=== PATIENT | male | born 1965 | race Caucasian/White ===

== ENCOUNTER → 2021-01-17 09:36 | Outpatient (BNVA) | payer BC, SELFPAY | PROVIDERS: Family Provider Student in an Organized Health Care Education/Training Program; Visit Provider Nurse Practitioner Family | DX: E11.628 Type 2 diabetes mellitus with other skin complications (principal); L89.894 Pressure ulcer of other site, stage 4; L03.115 Cellulitis of right lower limb | CPT/HCPCS: 87070; 87075; 87205 ==

== ENCOUNTER 2021-01-22 10:03 | Outpatient (CLI) | payer BC, SELFPAY ==
--- NOTE | 2021-01-22 12:32 | XR_ITS ---
WS: [id number] Right foot, 3 views, 01/22/2021 Clinical Data: TYPE II DM W/FOOT ULCER Comparison: Right foot, 04/27/2019. Findings: The distal right second metatarsal as been removed. There is erosion and subluxation at the base of the right third proximal phalanx with air adjacent. T here is also air in the subcutaneous tissue adjacent to the right third PIP joint. No fractures are s een. There is a small Achilles spur. XR/XR foot RT min 3V* [id number] Impression: 1. Amputation of the distal right second metatarsal. 2. Subluxation and erosion of the right third MP joint. 3. Air adjacent to the right third MP and PIP joints suspicious for infection.
[2021-01-22 13:34] LABS: Basophils # 0.1 10^3/uL (0.0-0.1); Basophils % 0.7 %; Eosinophils # 0.2 10^3/uL (0.0-0.8); Eosinophils % 2.2 %; Hemoglobin 14.4 g/dL (11.7-16.6); Lymphocytes # 1.4 10^3/uL (0.8-4.8); Lymphocytes % 19.5 %; Mean Corpuscular HGB Conc 33.5 g/dL (30.0-36.0); Mean Corpuscular Hemoglobin 30.1 pg (28.0-34.0); Mean Platelet Volume 9.6 fL (7.4-10.4); Monocytes # 0.5 10^3/uL (0.2-0.9); Monocytes % 6.6 %; Neutrophils % 70.6 %; Nucleated Red Blood Cells % 0 %; Platelet Count 269 10^3/cmm (130-400); Red Blood Count 4.78 10^6/uL (4.1-5.3); Red Cell Distribution Width 12.2 % (12.1-15.1); White Blood Count 7.2 10^3/uL (4.0-10.0)
[2021-01-22 14:44] LABS: Anion Gap 15.4 (5-19); Blood Urea Nitrogen 13 mg/dL (6-20); C Reactive Protein 43.1 mg/L (0.0-4.9); Calcium 9.5 mg/dL (8.5-10.5); Carbon Dioxide 26 mmol/L (22-29); Chloride 98 mmol/L (98-107); Glomerular Filtration Rate 87.9 mL/min (90-130); Glucose 111 mg/dL (65-115); Osmolality Calculated 281 mOsm/kg (285-295); Potassium 4.4 mmol/L (3.5-5.1); Prealbumin 16.1 mg/dL (20-40); Sodium 135 mmol/L (136-145)
[2021-01-22 15:03] LABS: Estmated Average Glucose 166; Hemoglobin A1C 7.4 % (4.0-6.0)
[2021-01-22 15:04] LABS: Erythrocyte Sedimentation Rate 72 mm/hr (0-10)
== END 2021-01-22 10:04 | disposition home or self-care (01) ==
PROVIDERS: Family Provider Student in an Organized Health Care Education/Training Program; Visit Provider Thoracic Surgery (Cardiothoracic Vascular Surgery)
DX: E11.621 Type 2 diabetes mellitus with foot ulcer (principal); L97.514 Non-pressure chronic ulcer of other part of right foot with necrosis of bone
CPT/HCPCS: 11044; 73630; 80048; 83036; 84134; 85025; 85651; 86140; 87070; 87077; 87176; 87205; G0463

== ENCOUNTER → 2021-01-24 13:52 | Outpatient (BNVA) | payer BC, SELFPAY | PROVIDERS: Family Provider Student in an Organized Health Care Education/Training Program; Visit Provider Podiatrist Foot & Ankle Surgery | DX: Z20.822 Contact with and (suspected) exposure to COVID-19 (principal); L97.519 Non-pressure chronic ulcer of other part of right foot with unspecified severity | CPT/HCPCS: 87635 ==

== ENCOUNTER 2021-01-28 10:41 | Day surgery (SDC) | payer BC, SELFPAY ==
[2021-01-28] VITALS (9 sets, daily range): BP systolic 92–116; BP diastolic 46–68; PULSE 59–87; RESP 17–18; TEMP 36.2–36.4; O2SAT 95–99; BMI 29.3
--- NOTE | 2021-01-28 11:06 | ANES.PREANE2 ---
Pre-Anesthetic Assessment Pre-Anesthetic Assessment: Height/Weight: Height 1.91 m Preop Diagnosis: Osteomyelitis right foot, equinus right ankle Proposed Procedure: Operation Date: 01/28/21 12:00 Proposed Procedures p Incision and debridement with third metatarsal osteotomy [id number] l97.514(Right) - Jack Ortiz DPM s tendo Achilles lengthening and insertion of antibiotic impregnated cement spacer all right lower extremity(Right) - Jack Ortiz DPM Was Beta Vinicio taken within 24 hours: N/A Social: Social History: No alcohol and No tobacco Exam: Pre-Anes Outpt Exam: alert, oriented x 3, clear to auscultation bilaterally and regular rate & rhythm Airway: Submandibular: WNL Cervical ROM: WNL MP: 2 Pulmonary: Pulmonary: None reported CV/HEM: Comments: S/P AAA Repair : : None reported Hepatic: Hepatic: None reported GI: GI: GERD Metabolic: Metabolic: DM Musc/skel: Musc/skel: None reported Neuropsych: Neuropsych: Anxiety and Depression Anesthetic Plan: ASA status: 3 Anesthesia: MAC PFSH Anesthesia PFSH: Medical History Diabetes Surgical History Aortic valve replaced History of abdominal aortic aneurysm (AAA) repair Social History Smoking and tobacco status: never smoked Data Anesthesia Cardiac Studies: No Data to Display
[2021-01-28 11:13] LABS: Glucose Point of Care 135 mg/dL (70-110)
[2021-01-28] MEDS: sodium chloride 0.9% 1,000 ML 30 ML IV (11:13)
--- NOTE | 2021-01-28 11:41 | W.PM.OPSUD ---
Surgery/Procedure H&P Update DATE OF PROCEDURE: January 28, 2021 DATE H&P PERFORMED: 01/28/21 H&P UPDATE INFORMATION: I have reviewed H&P completed within last 30 days, I have examined patient prior to procedure, No changes to prior documentation and H&P is in [facility] [place] EMR on date indicated PREOP DIAGNOSIS: Osteomyelitis right foot, equinus right ankle PLANNED PROCEDURE: Operation Date: 01/28/21 12:00 Proposed Procedures p Incision and debridement with third metatarsal osteotomy [id number] l97.514(Right) - Jack Ortiz DPM s tendo Achilles lengthening and insertion of antibiotic impregnated cement spacer all right lower extremity(Right) - Jack Ortiz DPM
[2021-01-28] MEDS: lidocaine 1% INJ 20 mL IM (12:20)
--- NOTE | 2021-01-28 12:56 | XRR_ITS ---
PROCEDURE INFORMATION: Exam: XR Right Foot Exam date and time: 01/28/2021 1:00 PM Age: 55 years old Clinical indication: Device placement; Other: Post op incision and debridment of third metatarsal; Prior surgery; Surgery date: Post-operative (0-2 days); Surgery type: Post op incision and debridement of third metatarsal TECHNIQUE: Imaging protocol: XR Right foot. Views: 3 or more views. COMPARISON: CR XR foot RT min 3V* [id number] 01/22/2021 12:37 PM FINDINGS: Bones/joints: The distal portion of the 2nd metatarsal bone has been amputated. There is a recent amputation of the distal portion of the 3rd metatarsal bone and proximal end of the proximal phalanx of the 3rd toe. Radiopaque material is present at the site of this amputation. Degenerative changes are present especially in the 1st tarsometatarsal joint. No other acute bony abnormalities are seen. Soft tissues: Normal. XR/XR foot RT min 3V* [id number] IMPRESSION: Satisfactory appearance of the recent amputation of the distal end of the 3rd metatarsal bone and proximal end of the 3rd proximal phalanx.
--- NOTE | 2021-01-28 12:57 | PM.OP ---
Operative Report Date of procedure: January 28, 2021 Pre-op Diagnosis: Osteomyelitis right foot, equinus right ankle Post-op diagnosis: same Post-op Findings: Devitalized soft tissue and bone, right foot Procedure Done: Partial resection of right foot third ray with metatarsal osteotomy, right tendo Achilles lengthening and insertion of antibiotic impregnated cement spacer to the right foot. CPT codes 70361, 55026 and 92044 Implants: 4-0 nylon. Simplex P cement with tobramycin Specimens removed/disposition: Right third metatarsal head sent to microbiology for Gram stain and culture Pathology: None Surgeon: Jack Ortiz D.P.M. Wall Worker: Marilee Anesthesia: MAC Estimated blood loss: Less than 5 mL Tourniquet time: 31 minutes IV fluids: None Urine output: None Complications: None Condition: stable Disposition: PACU Brief History: 55 year old male patient here for evaluation of his right foot wound. Patient states the wound has been present since August 2020. He was previously being treated [facility] for wound care. His wound is exposed to bone, the right third metatarsal head is fractured and unstable has dusky chavez and full-thickness wound right plantar forefoot is draining serous drainage. Patient has history of partial right second metatarsal resection performed by me 2 years ago. He presents n.p.o. in preparation for surgical intervention this will entail right tendo Achilles lengthening, I&D with osteotomy of the right third metatarsal and resection of the proximal phalanx base of the right third toe and insertion of cemented spacer impregnated with tobramycin. Risks include pain, bleeding, numbness, infection, failure to eradicate infection need for antibiotic therapy both oral and IV, transfer pressure, transfer lesion, need for higher level of amputation, damage to adjacent soft tissue structures, destabilized third toe and loss of function of the third toe. Patient wishes to proceed. He was interviewed preoperatively all questions answered to patient satisfaction, informed consent is signed by patient and myself, I initialed patient's right foot. No guarantees written, expressed or implied. Procedure: Mild sedation the patient was brought to the operating room and placed on the operating table in supine position. A timeout was performed. Anesthesia was then administered by the anesthesia service. Local anesthesia injected by myself consisting of a right third ray block as well as a proximal field block to the right posterior leg at the myotendinous junction of the Achilles tendon total of 30 cc of one-to-one mixture 1% lidocaine and 0.5% Marcaine plain was utilized. Well-padded pneumatic tourniquet applied to the right high calf. Right lower extremity was then scrubbed, prepped and draped utilizing normal aseptic technique. Right foot was elevated and the tourniquet inflated to 250 mmHg. Attention was directed to the right posterior leg, the Achilles tendon was palpated and 1.5 cm proximal to its insertion on the posterior calcaneus a midline stab incision was performed and a medial hemisection was performed, 1.5 cm proximal to this another stab incision midline with lateral hemisection was performed and another 1.5 cm proximal to this a midline stab incision was performed with medial hemisection, after triple hemisection was performed a appreciable increase in dorsiflexion noted at the right ankle able to obtain 10 degrees of dorsiflexion intraoperatively. Achilles remained intact, incisions were flushed and closed with 4-0 nylon. Attention was directed to the right dorsal forefoot where a linear longitudinal incision was made over the base of the right third toe coursing proximally over the third metatarsal down to bone, extensor tendons retracted medially. Sagittal saw utilized perform an osteotomy through the third metatarsal and the distal half of the right third metatarsal was excised and passed from operative field this was noted to be dusky dark chavez in appearance with poor density, bone was soft. This was sent to microbiology for Gram stain and culture. The base of the proximal phalanx also appear to be devitalized this was transected with a sagittal saw and passed from operative field. All devitalized surrounding soft tissue was sharply excised and flushed with saline solution. Simplex P with tobramycin was then prepared per printed circuit designer recommendations and a cylinder shaped cement spacer impregnated with antibiotics was inserted in the cavernous avoid. Incision site was flushed with saline solution and closed with 4-0 nylon. Right plantar ulcer was then debrided down to viable margin sharply with a #15 blade. This was then flushed with saline solution. Incision site was then dressed utilizing Adaptic, sterile 4 x 4, Kerlix and [place] wrap. Tourniquet was deflated and a prompt hyperemic response was noted to the distal digits of the right foot. Patient tolerated the procedure and anesthesia well and was transferred to the PACU with vital signs stable and vascular status intact. Following a period of postoperative monitoring he will be discharged home. He has a cam boot. He is to utilize this. He is to remain strict nonweightbearing at all times to the right foot and elevate above the hip while at rest. He is to utilize a cam boot to maintain 90 degree position of the ankle. Patient will follow up in podiatry clinic in 2 and half weeks for suture removal. Appreciate wound care management of the wound will collaborate with wound care.
--- NOTE | 2021-01-28 13:00 | ANE.PACU2 ---
Inpatient post-anesthesia follow up: Airway intact: Yes Vital signs: Temperature 97.2 F Pulse Rate 87 Respiratory Rate 18 Blood Pressure 104/68 Pulse Oximetry 97 Oxygen Delivery Me thod Room Air Oxygen Flow Rate Fraction of Inspir ed Oxygen Hydration adequate: Yes Nausea and vomiting: No Pain level: 1 Mental status: Baseline
--- NOTE | 2021-01-28 13:01 | SUR.PHASEI ---
PT AWAKES TO VOICE GOOD RESP NOTED VSS IV PATENT RT FOOT DRESSING D/I AND WALKING BOOT IN PLACE.
--- NOTE | 2021-01-28 13:34 | SUR.PHASEI ---
1315 DR SAUNDERS NOTIFIED BY TEXT PER ZOILA RN THAT PT INFERIOR TO TOES PT HAS SOME BREAKTHRU BLEEDING , ORDERS TO REINFORCE AND ELEVATE FOOT FOR 30 MINUTES AND OR TECH TO REDRESS THE FOOT. 1325 PT TO OPS AWAKE ALERT TALKATIVE REQUESTS SPRITE TO SIP ON, VSS.
== END 2021-01-28 14:35 | disposition home or self-care (01) ==
PROVIDERS: Visit Provider Podiatrist Foot & Ankle Surgery
PROC: (CPT 11982; principal; 2021-01-28 12:00)
PROC: (CPT 28261; 2021-01-28 12:00)
DX: M86.8X7 Other osteomyelitis, ankle and foot (principal); K21.9 Gastro-esophageal reflux disease without esophagitis; E11.9 Type 2 diabetes mellitus without complications; F41.9 Anxiety disorder, unspecified; F32.9 Major depressive disorder, single episode, unspecified
CPT/HCPCS: 11982; 27685; 28810; 36416; 73630; 82962; 87070; 87077; 87176; 87186; 87205; J0690; J2250; J2704; J3010; J3490; J7030

== ENCOUNTER 2021-01-29 10:55 | Outpatient (CLI) | payer BC, SELFPAY | END 2021-01-29 10:56 | disposition home or self-care (01) | LOC: WOUND 10:56 | PROVIDERS: Visit Provider Thoracic Surgery (Cardiothoracic Vascular Surgery) | DX: E11.621 Type 2 diabetes mellitus with foot ulcer (principal); L97.413 Non-pressure chronic ulcer of right heel and midfoot with necrosis of muscle | CPT/HCPCS: 11042 ==

== ENCOUNTER 2021-02-06 15:46 | Outpatient (CLI) | payer BC, SELFPAY | END 2021-02-06 15:47 | disposition home or self-care (01) | LOC: WOUND 15:47 | PROVIDERS: Visit Provider Thoracic Surgery (Cardiothoracic Vascular Surgery) | DX: E11.621 Type 2 diabetes mellitus with foot ulcer (principal); L97.412 Non-pressure chronic ulcer of right heel and midfoot with fat layer exposed | CPT/HCPCS: 11042 ==

== ENCOUNTER 2021-02-11 11:23 | Outpatient (CLI) | payer BC, SELFPAY | END 2021-02-11 11:24 | disposition home or self-care (01) | LOC: WOUND 11:24 | PROVIDERS: Visit Provider Thoracic Surgery (Cardiothoracic Vascular Surgery) | DX: E11.621 Type 2 diabetes mellitus with foot ulcer (principal); L97.412 Non-pressure chronic ulcer of right heel and midfoot with fat layer exposed | CPT/HCPCS: 11042 ==

== ENCOUNTER → 2021-02-14 15:39 | Outpatient (BNVA) | payer BC, SELFPAY | PROVIDERS: Visit Provider Podiatrist Foot & Ankle Surgery | DX: M24.571 Contracture, right ankle (principal) | CPT/HCPCS: 73630 ==

== ENCOUNTER 2021-02-18 13:10 | Outpatient (CLI) | payer BC, SELFPAY | END 2021-02-18 13:11 | disposition home or self-care (01) | LOC: WOUND 13:12 | PROVIDERS: Visit Provider Thoracic Surgery (Cardiothoracic Vascular Surgery) | DX: E11.621 Type 2 diabetes mellitus with foot ulcer (principal); M86.9 Osteomyelitis, unspecified; L97.412 Non-pressure chronic ulcer of right heel and midfoot with fat layer exposed | CPT/HCPCS: 11042; 85651; 86141 ==

== ENCOUNTER → 2021-02-28 13:00 | Outpatient (BNVA) | payer BC, SELFPAY | PROVIDERS: Visit Provider Podiatrist Foot & Ankle Surgery | DX: E11.42 Type 2 diabetes mellitus with diabetic polyneuropathy (principal); M86.171 Other acute osteomyelitis, right ankle and foot; Z79.4 Long term (current) use of insulin; L97.514 Non-pressure chronic ulcer of other part of right foot with necrosis of bone; M24.571 Contracture, right ankle | CPT/HCPCS: 73630 ==

== ENCOUNTER → 2021-03-04 13:33 | Outpatient (BNVA) | payer BC, SELFPAY | PROVIDERS: Visit Provider Podiatrist Foot & Ankle Surgery | DX: M86.171 Other acute osteomyelitis, right ankle and foot (principal); E11.42 Type 2 diabetes mellitus with diabetic polyneuropathy; Z79.4 Long term (current) use of insulin; L97.514 Non-pressure chronic ulcer of other part of right foot with necrosis of bone; M24.571 Contracture, right ankle | CPT/HCPCS: 73610 ==

== ENCOUNTER → 2021-03-18 12:30 | Outpatient (BNVA) | payer BC, SELFPAY | PROVIDERS: PCP Student in an Organized Health Care Education/Training Program; Visit Provider Student in an Organized Health Care Education/Training Program | DX: M86.171 Other acute osteomyelitis, right ankle and foot (principal) | CPT/HCPCS: 85651; 86140 ==

== ENCOUNTER → 2021-09-01 16:11 | Outpatient (BNVA) | payer BC, SELFPAY | PROVIDERS: PCP Student in an Organized Health Care Education/Training Program; Visit Provider Nurse Practitioner Family | DX: E11.42 Type 2 diabetes mellitus with diabetic polyneuropathy (principal); Z79.4 Long term (current) use of insulin; I10 Essential (primary) hypertension | CPT/HCPCS: 80053; 82043; 83036 ==

== ENCOUNTER → 2021-12-29 10:25 | Outpatient (BNVA) | payer BC, SELFPAY | PROVIDERS: PCP Student in an Organized Health Care Education/Training Program; Visit Provider Internal Medicine Endocrinology, Diabetes & Metabolism | DX: E11.42 Type 2 diabetes mellitus with diabetic polyneuropathy (principal); Z79.4 Long term (current) use of insulin | CPT/HCPCS: 80053; 80061; 82043; 83036 ==

== ENCOUNTER → 2023-11-05 14:57 | Outpatient (BNVA) | payer BC, SELFPAY | PROVIDERS: PCP Student in an Organized Health Care Education/Training Program; Visit Provider Nurse Practitioner Family | DX: R31.9 Hematuria, unspecified (principal); E11.42 Type 2 diabetes mellitus with diabetic polyneuropathy; Z79.4 Long term (current) use of insulin | CPT/HCPCS: 81000 ==

== ENCOUNTER 2024-12-13 08:59 | Observation (INO) | payer BC, SELFPAY ==
[2024-12-13] VITALS (18 sets, daily range): BP systolic 107–131; BP diastolic 51–95; PULSE 79–91; RESP 14–20; TEMP 36.7–37.3; O2SAT 94–99; BMI 29.2
[2024-12-13 09:44] LABS: Basophils % 0.2 %; Eosinophils % 0.1 %; Hematocrit 53.5 % (37-53); Lymphocytes # 0.7 10^3/uL (0.8-4.8); Lymphocytes % 5.3 %; Mean Corpuscular HGB Conc 33.3 g/dL (30-55); Mean Corpuscular Hemoglobin 29.8 pg (27-33); Mean Corpuscular Volume 89.5 fl (82-101); Mean Platelet Volume 10.6 fL (7.4-10.4); Monocytes # 0.8 10^3/uL (0.2-0.9); Monocytes % 5.9 %; Neutrophils # 12.05 10^3/uL (1.8-7.7); Neutrophils % 88.1 %; Nucleated Red Blood Cells % 0 %; Platelet Count 163 10^3/cmm (157-399); Red Blood Count 5.98 10^6/uL (3.85-5.65); Red Cell Distribution Width 12.4 % (12.1-15.1); White Blood Count 13.66 10^3/uL (3.29-11.43)
[2024-12-13 10:00] LABS: Alanine Aminotransferase 25 U/L (0-41); Albumin Level 4.5 g/dL (3.5-5.2); Alkaline Phosphatase 116 U/L (40-130); Anion Gap 25.8 (5-19); Aspartate Amino Transferase 17 U/L (0-40); Blood Urea Nitrogen 22 mg/dL (6-20); Calcium 9.5 mg/dL (8.5-10.5); Carbon Dioxide 19 mmol/L (22-29); Chloride 91 mmol/L (98-107); Creatinine Clr Calc Pharmacy 96.4498; Globulin 3.4 g/dL (1.3-4.6); Glomerular Filtration Rate 68.8 mL/min (90-130); Glucose 140 mg/dL (65-115); Lipase 21 U/L (13-60); Osmolality Calculated 278 mOsm/kg (285-295); Potassium 4.8 mmol/L (3.5-5.1); Sodium 131 mmol/L (136-145); Total Bilirubin 1.1 mg/dL (0.15-1.2); Total Protein 7.9 g/dL (6.6-8.7)
--- NOTE | 2024-12-13 10:04 | CT_ITS ---
WS: [id number] CT ABDOMEN AND PELVIS WITH CONTRAST HISTORY: Abdominal pain, RIGHT lower quadrant pain with nausea. TECHNIQUE: Imaging performed of the abdomen and pelvis with IV contrast. Single phase imaging of the abdomen. Coronal and sagittal reformats are submitted. All CT scans at [facility] use at [address] one of these dose optimization techniques: automated exposure control; mA and/or kV adjustment per patient size (includes targeted exams where dose is matched to clinical indication); or iterative re construction. IV CONTRAST: Omnipaque 350; 100 mL IV. Oral contrast: No DLP: 885.55 mGy.cm COMPARISON: None available. Lower thorax: Lung bases are clear. Heart is normal size. Small hiatal hernia. Liver/biliary system: Numerous granulomata. Otherwise normal. Normal portal vein. Gallbladder: Normal. No gallstones or wall thickening. No pericholecystic fluid. Pancreas: Normal size pancreas and pancreatic duct. No adjacent inflammation. Spleen: Normal size with numerous granulomata. Adrenal glands: Normal. Right kidney: Normal. Left kidney: Normal. Aorta: Mild atherosclerosis with no aneurysm. Lymphadenopathy: None. Free fluid: No free fluid in the pelvis. GI tract: Moderate inflammatory changes in the RIGHT lower quadrant consistent with appendicitis. Karthik endix measures 1.5 cm in diameter with periappendiceal inflammation. The distal appendiceal tip is no t dilated although hyperemic. No abscess. No definite perforation. Abdominal wall: Unremarkable abdominal wall. No hernia. Pelvis: Normal urinary bladder. No free fluid. Calcified seminal vesicles. Bones: Unremarkable. CT/CT abdomen pelvis w con* [id number] IMPRESSION: 1. Acute, advanced appendicitis without perforation or abscess. Appendix is di lated with moderate periappendiceal inflammation. 2. No free fluid. 3. No renal obstruction. 4. Hepatic and splenic granulomata.
--- NOTE | 2024-12-13 10:11 | ED_ITS ---
HPI - Abdominal Pain 2 General: Chief Complaint: Abdominal Pain Stated Complaint: right side lower abdominal pain Time Seen by Provider: 12/13/24 09:15 History of Present Illness: 51-[facility] of right lower quadrant Brennon pain that began overnight. Also difficulty with urination does not feel like emptying his bladder difficulty initiating urine stream. No previous abdominal surgeries no hematuria he has had some mild dysuria when he is able to urinate a bit. Has had a low-grade fever at home as well. Patient is diabetic he is on metformin no diarrhea no hematochezia melena hematemesis cough cramps he has no known history of nephrolithiasis. Associated Symptoms: Reports nausea and vomiting; Denies chills, dysuria and fever(s) Related Data Home Medications Medication Instructions Recorded Confirmed aspirin 81 mg tablet,delayed 81 mg PO DAILY 12/18/20 12/13/24 release spironolactone 25 mg tablet 25 mg PO DAILY 12/18/20 12/13/24 lisinopril 20 mg tablet 20 mg PO DAILY 01/24/21 12/13/24 buspirone 5 mg tablet 5 mg PO TID 12/13/24 12/13/24 cetirizine 10 mg tablet 10 mg PO DAILY 12/13/24 12/13/24 doxycycline hyclate 100 mg tablet 100 mg PO BID 12/13/24 12/13/24 empagliflozin 25 mg tablet 25 mg PO DAILY 12/13/24 12/13/24 (Jardiance) glipizide 5 mg tablet, extended 5 mg PO DAILY 12/13/24 12/13/24 release 24 hr methylprednisolone 4 mg tablets in 0 mg PO PER PKG DIR 12/13/24 12/13/24 a dose pack (Medrol (Gomez)) metoprolol succinate 25 mg 25 mg PO DAILY 12/13/24 12/13/24 tablet,extended release 24 hr Previous Rx's Medication Instructions Recorded Custom accomodative molded #1 ea 03/25/21 orthotics metformin 1,000 mg tablet 1,000 mg PO BID #60 tabs 09/01/21 amoxicillin 875 mg-potassium 1 tab PO BID #14 tabs 12/14/24 clavulanate 125 mg tablet docusate sodium 100 mg capsule 100 mg PO BID #14 caps 12/14/24 (Colace) hydrocodone 7.5 mg-acetaminophen 1 tab PO Q6H PRN pain #20 tabs 12/14/24 325 mg tablet polyethylene glycol 3350 17 17 g PO DAILY 7 days #119 grams 12/14/24 gram/dose oral powder (Miralax) Allergies Allergy/AdvReac Type Severity Reaction Status Date / Time sulfamethoxazole Allergy Severe LIP Verified 02/09/24 10:53 [From Bactrim] SWELLING trimethoprim [From Bactrim] Allergy Severe LIP Verified 02/09/24 10:53 SWELLING azithromycin Allergy Mild DIARRHEA Verified 02/09/24 10:53 Review of Systems 2 Const: Denies: fever(s) or chills Card: Denies: chest pain Resp: Denies: dyspnea GI: Reports: abdominal pain, nausea and vomiting : Denies: dysuria, urinary frequency or urinary urgency Musc: Denies: neck pain or back pain Skin/Breast: Denies: rash PFSH ED 2 PFSH: Medical History Hypertension CHF (congestive heart failure) Diabetes mellitus Diabetes mellitus with diabetic polyneuropathy Diabetes Surgical History History of abdominal aortic aneurysm (AAA) repair Aortic valve replaced Social History Smoking and tobacco/nicotine status: never used tobacco/nicotine Alcohol intake: never Substance/Drug Use: never Adopted: No Caregiver/support person: No Lives independently: No service: No Current occupational status: employed Do you think of yourself as: Straight/Heterosexual Current gender identity: Male Physical Exam 2 Const: GENERAL APPEARANCE: cooperative ORIENTATION/CONSCIOUSNESS: Yes awake, Yes oriented to person, Yes oriented to place and Yes oriented to time HENMT: COMMON NORMALS: normocephalic, atraumatic and hearing grossly normal bilaterally HEAD & SCALP: normocephalic and atraumatic Resp: COMMON NORMALS: normal respiratory effort, No retractions, No use of accessory muscles and clear to auscultation bilaterally AUSCULTATION: clear to auscultation bilaterally Cardio: COMMON NORMALS: regular rate, regular rhythm and No murmurs present (Cardio) RATE: regular rate RHYTHM: regular rhythm GI: COMMON NORMALS: No hepatosplenomegaly present AUSCULTATION: Yes normoactive bowel sounds PALPATION: Yes Tenderness to palpation present (GI) Details: RLQ, Yes Guarding due to palpation present (GI) in the RLQ and Yes No hepatosplenomegaly present Extremity: COMMON NORMALS: normal to inspection, capillary refill normal, no clubbing, cyanosis or edema, no calf tenderness and no pedal edema Neuro: SENSORIUM/ORIENTATION: Yes oriented to person, Yes oriented to place and Yes oriented to time Skin: COMMON NORMALS: no rashes or lesions noted GENERAL SKIN EXAM: no rashes or lesions noted Course 2 Vital Signs: Vital signs: Vital Signs Temperature 98.5 F 12/14/24 12:27 Pulse Rate 78 12/14/24 12:27 Respiratory Rate 15 12/14/24 12:27 Blood Pressure 111/62 12/14/24 12:27 Pulse Oximetry 97 12/14/24 12:27 Oxygen Delivery Me thod Room Air 12/14/24 11:15 Oxygen Flow Rate 6 12/13/24 15:29 MDM - Abdominal Pain Medical Decision Making Leukocytosis acute appendicitis on CT consistent with exam findings. Discussed with surgery on-call, will admit Dr. Dawkins. He is seeing the patient in the emergency room. Medical Records I reviewed the patient's medical records. Lab Data I reviewed the patient's lab results. 12/13/24 09:36 12/13/24 09:36 Labs/Radiology: Radiology Impressions Abdomen/Pelvis CT 12/13/24 10:04 IMPRESSION: 1. Acute, advanced appendicitis without perforation or abscess. Appendix is dilated with moderate periappendiceal inflammation. 2. No free fluid. 3. No renal obstruction. 4. Hepatic and splenic granulomata. Laboratory Results WBC 13.66 10^3/uL (3.29-11.43) H 12/13/24 09:36 RBC 5.98 10^6/uL (3.85-5.65) H 12/13/24 09:36 Hgb 17.80 g/dL (11.27-16.99) H 12/13/24 09:36 Hct 53.5 % (37-53) H 12/13/24 09:36 MCV 89.5 fl (82-101) 12/13/24 09:36 MCH 29.8 pg (27-33) 12/13/24 09:36 MCHC 33.3 g/dL (30-55) 12/13/24 09:36 RDW 12.4 % (12.1-15.1) 12/13/24 09:36 Plt Count 163 10^3/cmm (157-399) 12/13/24 09:36 MPV 10.6 fL (7.4-10.4) H 12/13/24 09:36 Neut % (Auto) 88.1 % 12/13/24 09:36 Lymph % (Auto) 5.3 % 12/13/24 09:36 [place] % (Auto) 5.9 % 12/13/24 09:36 Eos % (Auto) 0.1 % 12/13/24 09:36 Baso % (Auto) 0.2 % 12/13/24 09:36 Neut # (Auto) 12.05 10^3/uL (1.8-7.7) H 12/13/24 09:36 Lymph # (Auto) 0.7 10^3/uL (0.8-4.8) L 12/13/24 09:36 [place] # (Auto) 0.8 10^3/uL (0.2-0.9) 12/13/24 09:36 Eos # (Auto) 0.0 10^3/uL (0.0-0.8) 12/13/24 09:36 Baso # (Auto) 0.0 10^3/uL (0.0-0.1) 12/13/24 09:36 Nucleated RBC % (auto) 0 % 12/13/24 09:36 Nucleated RBCs # 0.0 /100WBC 12/13/24 09:36 Sodium 131 mmol/L (136-145) L 12/13/24 09:36 Potassium 4.8 mmol/L (3.5-5.1) 12/13/24 09:36 Chloride 91 mmol/L (98-107) L 12/13/24 09:36 Carbon Dioxide 19 mmol/L (22-29) L 12/13/24 09:36 Anion Gap 25.8 (5-19) H 12/13/24 09:36 BUN 22 mg/dL (6-20) H 12/13/24 09:36 Creatinine 1.1 mg/dL (0.7-1.2) 12/13/24 09:36 GFR Calculation 68.8 mL/min (90-130) L 12/13/24 09:36 Glucose 140 mg/dL (65-115) H 12/13/24 09:36 Calculated Osmolality 278 mOsm/kg (285-295) L 12/13/24 09:36 Calcium 9.5 mg/dL (8.5-10.5) 12/13/24 09:36 Total Bilirubin 1.1 mg/dL (0.15-1.2) 12/13/24 09:36 AST 17 U/L (0-40) 12/13/24 09:36 ALT 25 U/L (0-41) 12/13/24 09:36 Alkaline Phosphatase 116 U/L (40-130) 12/13/24 09:36 Total Protein 7.9 g/dL (6.6-8.7) 12/13/24 09:36 Albumin 4.5 g/dL (3.5-5.2) 12/13/24 09:36 Globulin 3.4 g/dL (1.3-4.6) 12/13/24 09:36 Lipase 21 U/L (13-60) 12/13/24 09:36 Urine Color Yellow (Yellow) 12/13/24 10:16 Urine Appearance Clear (CLEAR) 12/13/24 10:16 Urine pH 5.0 (5-7) 12/13/24 10:16 Ur Specific [place] 1.036 (1.005-1.030) H 12/13/24 10:16 Urine Protein Negative (Negative) 12/13/24 10:16 Urine Glucose (UA) 3+ (Normal) H 12/13/24 10:16 Urine Ketones 3+ (Negative) H 12/13/24 10:16 Urine Blood Negative (Negative) 12/13/24 10:16 Urine Nitrate Negative (Negative) 12/13/24 10:16 Urine Bilirubin Negative (Negative) 12/13/24 10:16 Urine Urobilinogen 1.0 mg/dL (Negative) 12/13/24 10:16 Ur Leukocyte Esterase Negative (Negative) 12/13/24 10:16 Urine RBC 0-2 /hpf (0-2) 12/13/24 10:16 Urine WBC 0-5 /hpf (0-5) 12/13/24 10:16 Ur Squamous Epith Cells 0-5 /hpf (0-5) 12/13/24 10:16 Amorphous Sediment Not Reportable 12/13/24 10:16 Urine Bacteria None seen /hpf (NONE) 12/13/24 10:16 Hyaline Casts 0-4 /lpf H 12/13/24 10:16 All radiology interpretation(s) finalized by discharge Discharge Plan Discharge Patient Disposition: Admitted As Inpatient Admit Provider: Gene Rodrigues Clinical Impression: Acute appendicitis Condition: Stable Discharge Diet: Advance as tolerated Discharge Activity: Resume usual activity Coding Level of Care Code 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
[2024-12-13] MEDS: iohexol 350 mg/mL 500 mL Btl (per mL) IV (10:16)
[2024-12-13 10:34] LABS: Bilirubin Urine Negative (Negative); Blood Urine Negative (Negative); Glucose Urine UA 3+ (Normal); Ketones Urine 3+ (Negative); Leukocyte Esterase Urine Negative (Negative); Nitrate Urine Negative (Negative); Protein Urine Negative (Negative); Urine Appearance Clear (CLEAR); Urine Color Yellow (Yellow)
[2024-12-13 10:40] LABS: Add Urine Microscopic? YES; Bacteria Urine None Seen /hpf; Hyaline Casts Urine 0-4 /lpf; RBC Urine 0-2 /hpf (0-2); Squamous Epithelial Cell Urine 0-5 /hpf (0-5); WBC Urine 0-5 /hpf (0-5)
[2024-12-13] MEDS: sodium chloride 0.9% 1,000 ML 999 ML IV (10:52)
[2024-12-13] MEDS: piperacillin-tazobactam 3.375 GM in sodium chloride 0.9% (plus) 50 ML IV ×2 (10:53→17:28)
[2024-12-13] MEDS: ondansetron 2 mg/ML SDV 2 mL 4 MG IVP ×2 (10:55→13:13)
[2024-12-13] MEDS: morphine 4 mg/mL SDV 1 mL IVP (10:55)
[2024-12-13 10:56] LABS: Specific Gravity, Urine 1.036 (1.005-1.030)
[2024-12-13 10:57] LABS: Add Urine Culture? No
[2024-12-13] MEDS: sodium chloride 0.9% 1,000 ML 30 ML IV (13:13)
--- NOTE | 2024-12-13 13:46 | P.HP_ITS ---
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 Palpation makes pain worse and nothing makes pain better. The pain does not radiate. He reports nausea but no emesis. CT of the abdomen pelvis shows acute appendicitis. He does not take any blood thinners. Review of Systems 2 General: Reports: 10 or more systems reviewed and unremarkable except in HPI and below Medications/Allergies Home Medications Medication Instructions Recorded Confirmed Last Taken Type aspirin 81 mg tablet,delayed 81 mg PO DAILY 12/18/20 12/13/24 12/12/24 History release spironolactone 25 mg tablet 25 mg PO DAILY 12/18/20 12/13/24 12/12/24 History lisinopril 20 mg tablet 20 mg PO DAILY 01/24/21 12/13/24 12/12/24 History Custom accomodative molded #1 ea 03/25/21 12/13/24 Unknown Rx orthotics metformin 1,000 mg tablet 1,000 mg PO BID #60 tabs 09/01/21 12/13/24 12/12/24 Rx buspirone 5 mg tablet 5 mg PO TID 12/13/24 12/13/24 Unknown History cetirizine 10 mg tablet 10 mg PO DAILY 12/13/24 12/13/24 Unknown History doxycycline hyclate 100 mg tablet 100 mg PO BID 12/13/24 12/13/24 Unknown History empagliflozin 25 mg tablet 25 mg PO DAILY 12/13/24 12/13/24 12/12/24 History (Jardiance) glipizide 5 mg tablet, extended 5 mg PO DAILY 12/13/24 12/13/24 Unknown History release 24 hr methylprednisolone 4 mg tablets in 0 mg PO PER PKG DIR 12/13/24 12/13/24 Unknown History a dose pack (Medrol (Gomez)) metoprolol succinate 25 mg 25 mg PO DAILY 12/13/24 12/13/24 12/12/24 History tablet,extended release 24 hr Allergies Allergy/AdvReac Type Severity Reaction Status Date / Time sulfamethoxazole Allergy Severe LIP Verified 02/09/24 10:53 [From Bactrim] SWELLING trimethoprim [From Bactrim] Allergy Severe LIP Verified 02/09/24 10:53 SWELLING azithromycin Allergy Mild DIARRHEA Verified 02/09/24 10:53 PFSH Acute 2 PFSH: Medical History Hypertension CHF (congestive heart failure) Diabetes mellitus Diabetes mellitus with diabetic polyneuropathy Diabetes Surgical History History of abdominal aortic aneurysm (AAA) repair Aortic valve replaced Social History Smoking and tobacco/nicotine status: never used tobacco/nicotine Alcohol intake: never Substance/Drug Use: never Adopted: No Caregiver/support person: No Lives independently: No service: No Current occupational status: employed Do you think of yourself as: Straight/Heterosexual Current gender identity: Male Vitals/I&O/Wt Last Vital Signs Temp 99.2 F 12/13/24 13:23 Pulse 86 12/13/24 13:23 Resp 14 12/13/24 13:23 BP 113/51 12/13/24 13:23 Pulse Ox 96 12/13/24 13:23 O2 Del Method Room Air 12/13/24 13:23 12/12/24 12/13/24 12/13/24 22:59 06:59 14:59 Intake Total 1050 / 1050 Balance 1050 / 1050 Weight last 48 hrs Weight 234 lb Physical Exam 2 Narrative: General : Patient is well developed , no acute distress, oriented x3 Head : Normal cephalic, a-traumatic. Ears : Pinnae and external canal are normal. Hearing is normal. Eyes : PERRLA, Sclera and injection are normal. No conjunctival discharge. Nose : Mucous membranes are without erythema. Throat : buccal mucosa is normal, gums are without significant recession or hypertrophy. Lungs : Equal chest rise bilaterally, no use of accessory muscles, trachea is midline. Cor : Rate and rhythm are normal. Abdomen : Soft, ND, tender to palpation right lower quadrant, negative Rovsing's, no g/r/m Extremities : No edema, no cyanosis or clubbing, dorsalis pedis pulses are present bilaterally, non-tender to palpation of calves. Upper extremities are normal bilaterally. Back : non-tender to palpation, no CVA tenderness. Neuro : CN II - XII intact, Upper and lower extremities have equal and full strength Data 12/13/24 09:36 12/13/24 09:36 A&P Assessment and plan (1) Acute appendicitis: Plan Laparoscopic Appendectomy The risks and benefits of the procedure, including but not limited to, bleeding, infection, scar, numbness, pain, damage to surrounding structures, conversion to an open procedure, were explained to the patient. He is understanding of the risks and wishes to proceed. Attestations 2 Medical Necessity Statement*: Depending on the severity of his appendicitis and if it is perforated, he may need to stay in the hospital for 1-5 nights. Coding Level of Care Code 83175 Diagnoses Acute appendicitis K35.80
--- NOTE | 2024-12-13 13:57 | ANES.PREANE2 ---
Pre-Anesthetic Assessment Height/Weight: Height 6 ft 3 in Weight 234 lb Temp Pulse Resp BP Pulse Ox O2 Del Method 99.2 F 86 14 113/51 96 Room Air 12/13/24 13:23 12/13/24 13:23 12/13/24 13:23 12/13/24 13:23 12/13/24 13:23 12/13/24 13:23 Preop Diagnosis: Appendicitis Operation Date: 12/13/24 13:10 Proposed Procedures p Laparoscopic Appendectomy(Not Applicable) - Jasvir Dawkins, DO Was Beta Vinicio taken within 24 hours: Yes Was Clonidine taken within 24 hours: N/A Last intake: Intake Last Liquid Date 12/12/24 Last Liquid Time 20:00 Last Solid Date 12/12/24 Last Solid Time 20:00 Social No alcohol and No tobacco Exam alert, oriented x 3 and clear to auscultation bilaterally PACs on EKG Airway Submandibular: within normal limits Cervical ROM: within normal limits Mallampati: Class III Dentition: full Anesthetic Plan ASA status: 3 Anesthesia: General Other: No prior issues with anesthesia NPO since yesterday Acute appendicitis on imaging Labs reviewed, leukocytosis noted. NA 131 EKG showing PACs Patient has a history of a artificial aortic valve, placed in 2017 METs greater than 4 Plan for GETA Medications/Allergies Home Medications Medication Instructions Recorded Confirmed Last Taken Type aspirin 81 mg tablet,delayed 81 mg PO DAILY 12/18/20 12/13/24 12/12/24 History release spironolactone 25 mg tablet 25 mg PO DAILY 12/18/20 12/13/24 12/12/24 History lisinopril 20 mg tablet 20 mg PO DAILY 01/24/21 12/13/24 12/12/24 History Custom accomodative molded #1 ea 03/25/21 12/13/24 Unknown Rx orthotics metformin 1,000 mg tablet 1,000 mg PO BID #60 tabs 09/01/21 12/13/24 12/12/24 Rx buspirone 5 mg tablet 5 mg PO TID 12/13/24 12/13/24 Unknown History cetirizine 10 mg tablet 10 mg PO DAILY 12/13/24 12/13/24 Unknown History doxycycline hyclate 100 mg tablet 100 mg PO BID 12/13/24 12/13/24 Unknown History empagliflozin 25 mg tablet 25 mg PO DAILY 12/13/24 12/13/24 12/12/24 History (Jardiance) glipizide 5 mg tablet, extended 5 mg PO DAILY 12/13/24 12/13/24 Unknown History release 24 hr methylprednisolone 4 mg tablets in 0 mg PO PER PKG DIR 12/13/24 12/13/24 Unknown History a dose pack (Medrol (Gomez)) metoprolol succinate 25 mg 25 mg PO DAILY 12/13/24 12/13/24 12/12/24 History tablet,extended release 24 hr Allergies Allergy/AdvReac Type Severity Reaction Status Date / Time sulfamethoxazole Allergy Severe LIP Verified 02/09/24 10:53 [From Bactrim] SWELLING trimethoprim [From Bactrim] Allergy Severe LIP Verified 02/09/24 10:53 SWELLING azithromycin Allergy Mild DIARRHEA Verified 02/09/24 10:53 [facility] Anesthesia Medical History Hypertension CHF (congestive heart failure) Diabetes mellitus Diabetes mellitus with diabetic polyneuropathy Diabetes Surgical History History of abdominal aortic aneurysm (AAA) repair Aortic valve replaced Social History Smoking and tobacco/nicotine status: never used tobacco/nicotine Alcohol intake: never Substance/Drug Use: never Adopted: No Caregiver/support person: No Lives independently: No service: No Current occupational status: employed Do you think of yourself as: Straight/Heterosexual Current gender identity: Male Data Anesthesia 12/13/24 09:36 12/13/24 09:36 Short CBC 12/13/24 Range/Units 09:36 WBC 13.66 H (3.29-11.43) 10^3/uL Hgb 17.80 H (11.27-16.99) g/dL Hct 53.5 H (37-53) % MCV 89.5 (82-101) fl Plt Count 163 (157-399) 10^3/cmm Neut % (Auto) 88.1 % Neut # (Auto) 12.05 H (1.8-7.7) 10^3/uL BMP 12/13/24 09:36 Sodium 131 L Potassium 4.8 Chloride 91 L Carbon Dioxide 19 L BUN 22 H Creatinine 1.1 Glucose 140 H Calcium 9.5 Liver Function 12/13/24 Range/Units 09:36 Total Bilirubin 1.1 (0.15-1.2) mg/dL AST 17 (0-40) U/L ALT 25 (0-41) U/L Alkaline Phosphatase 116 (40-130) U/L Albumin 4.5 (3.5-5.2) g/dL Urine 12/13/24 Range/Units 10:16 Urine Color Yellow (Yellow) Urine Appearance Clear (CLEAR) Urine pH 5.0 (5-7) Ur Specific [place] 1.036 H (1.005-1.030) Urine Protein Negative (Negative) Urine Glucose (UA) 3+ H (Normal) Urine Ketones 3+ H (Negative) Urine Nitrate Negative (Negative) Urine Bilirubin Negative (Negative) Ur Leukocyte Esterase Negative (Negative) Urine RBC 0-2 (0-2) /hpf Urine WBC 0-5 (0-5) /hpf Cardiac Studies: No Data to Display
[2024-12-13] MEDS: lidocaine-epi 2% PF 1:200,000 20 mL SDV XX (14:25)
--- NOTE | 2024-12-13 15:06 | P.OP_ITS ---
Operative Report Date of procedure: December 13, 2024 Pre-op diagnosis: Acute appendicitis Post-op diagnosis: same Procedure done: Laparoscopic appendectomy Specimens removed/disposition: Appendix Surgeon: Jasvir Dawkins DO Anesthesia: General and Local Estimated blood loss (mL): 5 Complications: None apparent Brief History: This is a very pleasant 59-year-old gentleman who presented to hospital 1 day history of abdominal pain. He is diagnosed with acute appendicitis. Laparoscopic appendectomy is indicated. The risk and benefits were explained and documented. Procedure: Patient was wheeled into the operative room and placed on the OR table in a supine position. Abdomen was inspected prepped and draped in usual sterile fashion. Time-out was performed and all present were in agreement. A 15 blade scalp was used to make a stab incision in the left upper quadrant and intra- abdominal insufflation was achieved using a Veress needle. After localizing the tissue incisions were made and a 12 millimeter trocar was placed into the umbilicus as well as a 5mm in the right lower quadrant and a 5 mm in the left lower quadrant . The appendix was identified and was densely adhered to surrounding bowel and abdominal wall. I the appendix away with meticulous dissection using laparoscopic ligature. The appendix was not perforated but significantly inflamed and appeared to have some necrotic areas. I used the laparoscopic ligature to ligate the mesoappendix at the base. I then used 2 PDS endo-loops to snare the base of the appendix. I then used the laparoscopic ligature to ligate the appendix distally. The appendix was removed from the abdomen using an Endo-Catch bag through the umbilical incision. I examined the abdomen and no further pathology was identified. Hemostasis was noted. I then closed the umbilical site with a Patricio-Roslyn and 0 Vicryl suture in a figure of 8 fashion. All ports removed. Skin was washed and dried. Incisions were closed with 4 O Vicryl in a subcuticular interrupted fashion. Skin glue was applied. Patient tolerated the procedure well.
--- NOTE | 2024-12-13 16:02 | ANE.PACU2 ---
Inpatient post-anesthesia follow up: Airway intact: Yes Vital signs: Temperature 98.5 F Pulse Rate 78 Respiratory Rate 15 Blood Pressure 111/62 Pulse Oximetry 97 Oxygen Delivery Me thod Room Air Oxygen Flow Rate 6 Fraction of Inspir ed Oxygen Hydration adequate: Yes Nausea and vomiting: No Pain level: 1 Mental status: Baseline
[2024-12-13 18:35] LABS: Glucose Point of Care 136 mg/dL (70-110)
[2024-12-13] MEDS: doxycycline 100 mg Tablet PO (18:43)
[2024-12-13] MEDS: metformin 500 mg Tablet 1000 MG PO (18:43)
[2024-12-13 20:18] LABS: Glucose Point of Care 132 mg/dL (70-110)
[2024-12-13] MEDS: BuSPIRONE 10 mg Tablet 5 MG PO (20:48)
[2024-12-14] VITALS: BP 100/60; PULSE 72; RESP 16; TEMP 36.7; O2SAT 96
[2024-12-14] MEDS: piperacillin-tazobactam 3.375 GM in sodium chloride 0.9% (plus) 50 ML IV ×2 (00:20→08:34)
[2024-12-14 03:17] VITALS: BP 101/56; PULSE 75; RESP 18; TEMP 36.8; O2SAT 96
[2024-12-14 06:28] LABS: Glucose Point of Care 189 mg/dL (70-110)
[2024-12-14 08:00] VITALS: BP 128/67; PULSE 82; RESP 14; TEMP 36.8; O2SAT 99
[2024-12-14] MEDS: BuSPIRONE 10 mg Tablet 5 MG PO (08:32)
[2024-12-14] MEDS: metoprolol succinate ER (24 HR) 25 mg Tablet PO (08:32)
[2024-12-14] MEDS: spironolactone 25 mg Tablet PO (08:33)
[2024-12-14] MEDS: doxycycline 100 mg Tablet PO (08:33)
[2024-12-14] MEDS: cetirizine 10 mg Tablet PO (08:33)
[2024-12-14] MEDS: metformin 500 mg Tablet 1000 MG PO (08:33)
[2024-12-14] MEDS: lisinopril 20 mg Tablet PO (08:33)
[2024-12-14] MEDS: aspirin 81 mg EC Tablet PO (08:33)
--- NOTE | 2024-12-14 09:06 | P.DS_ITS ---
Discharge Providers Date of Admission: 12/13/24 15:25 Date of Discharge: December 14, 2024 Attending Provider at Admission: Gene Rodrigues Attending Provider at Discharge: Jasvir Dawkins DO Primary Care Provider: VERO Winkler Diagnoses at Discharge Discharge Diagnosis (1) Acute appendicitis: Status: Acute Reason for Visit Reason for Visit: right side lower abdominal pain Hospital Course Hospital Course This is a very pleasant 59-year-old gentleman who came into the hospital with abdominal pain. He was diagnosed with acute appendicitis. He underwent laparoscopic appendectomy and was discharged home in good condition the next day Physical Exam Narrative: General : Patient is well developed , no acute distress, oriented x3 Head : Normal cephalic, a-traumatic. Ears : Pinnae and external canal are normal. Hearing is normal. Eyes : PERRLA, Sclera and injection are normal. No conjunctival discharge. Nose : Mucous membranes are without erythema. Throat : buccal mucosa is normal, gums are without significant recession or hypertrophy. Lungs : Equal chest rise bilaterally, no use of accessory muscles, trachea is m idline. Cor : Rate and rhythm are normal. Abdomen : Soft, ND, appropriately tender, no g/r/m Extremities : No edema, no cyanosis or clubbing, dorsalis pedis pulses are present bilaterally, non-tender to palpation of calves. Upper extremities are normal bilaterally. Back : non-tender to palpation, no CVA tenderness. Neuro : CN II - XII intact, Upper and lower extremities have equal and full str ength Discharge Data Studies Completed and Pending Completed Studies During Hospitalization Category Date Time Status CT abdomen pelvis w con* [id number] Stat Cat Scan 12/13/24 10:04 Completed Pending at discharge Category Date Time Status Pathology: Surgical [PTH] Routine Pth 12/13/24 14:45 Received Radiology Impressions Abdomen/Pelvis CT 12/13/24 10:04 IMPRESSION: 1. Acute, advanced appendicitis without perforation or abscess. Appendix is dilated with moderate periappendiceal inflammation. 2. No free fluid. 3. No renal obstruction. 4. Hepatic and splenic granulomata. Laboratory Results WBC 13.66 10^3/uL (3.29-11.43) H 12/13/24 09:36 RBC 5.98 10^6/uL (3.85-5.65) H 12/13/24 09:36 Hgb 17.80 g/dL (11.27-16.99) H 12/13/24 09:36 Hct 53.5 % (37-53) H 12/13/24 09:36 MCV 89.5 fl (82-101) 12/13/24 09:36 MCH 29.8 pg (27-33) 12/13/24 09:36 MCHC 33.3 g/dL (30-55) 12/13/24 09:36 RDW 12.4 % (12.1-15.1) 12/13/24 09:36 Plt Count 163 10^3/cmm (157-399) 12/13/24 09:36 MPV 10.6 fL (7.4-10.4) H 12/13/24 09:36 Neut % (Auto) 88.1 % 12/13/24 09:36 Lymph % (Auto) 5.3 % 12/13/24 09:36 [place]bs % (Auto) 5.9 % 12/13/24 09:36 Eos % (Auto) 0.1 % 12/13/24 09:36 Baso % (Auto) 0.2 % 12/13/24 09:36 Neut # (Auto) 12.05 10^3/uL (1.8-7.7) H 12/13/24 09:36 Lymph # (Auto) 0.7 10^3/uL (0.8-4.8) L 12/13/24 09:36 [place] # (Auto) 0.8 10^3/uL (0.2-0.9) 12/13/24 09:36 Eos # (Auto) 0.0 10^3/uL (0.0-0.8) 12/13/24 09:36 Baso # (Auto) 0.0 10^3/uL (0.0-0.1) 12/13/24 09:36 Nucleated RBC % (auto) 0 % 12/13/24 09:36 Nucleated RBCs # 0.0 /100WBC 12/13/24 09:36 Sodium 131 mmol/L (136-145) L 12/13/24 09:36 Potassium 4.8 mmol/L (3.5-5.1) 12/13/24 09:36 Chloride 91 mmol/L (98-107) L 12/13/24 09:36 Carbon Dioxide 19 mmol/L (22-29) L 12/13/24 09:36 Anion Gap 25.8 (5-19) H 12/13/24 09:36 BUN 22 mg/dL (6-20) H 12/13/24 09:36 Creatinine 1.1 mg/dL (0.7-1.2) 12/13/24 09:36 GFR Calculation 68.8 mL/min (90-130) L 12/13/24 09:36 Glucose 140 mg/dL (65-115) H 12/13/24 09:36 POC Glucose 189 mg/dL (70-110) H 12/14/24 06:25 Calculated Osmolality 278 mOsm/kg (285-295) L 12/13/24 09:36 Calcium 9.5 mg/dL (8.5-10.5) 12/13/24 09:36 Total Bilirubin 1.1 mg/dL (0.15-1.2) 12/13/24 09:36 AST 17 U/L (0-40) 12/13/24 09:36 ALT 25 U/L (0-41) 12/13/24 09:36 Alkaline Phosphatase 116 U/L (40-130) 12/13/24 09:36 Total Protein 7.9 g/dL (6.6-8.7) 12/13/24 09:36 Albumin 4.5 g/dL (3.5-5.2) 12/13/24 09:36 Globulin 3.4 g/dL (1.3-4.6) 12/13/24 09:36 Lipase 21 U/L (13-60) 12/13/24 09:36 Urine Color Yellow (Yellow) 12/13/24 10:16 Urine Appearance Clear (CLEAR) 12/13/24 10:16 Urine pH 5.0 (5-7) 12/13/24 10:16 Ur Specific [place] 1.036 (1.005-1.030) H 12/13/24 10:16 Urine Protein Negative (Negative) 12/13/24 10:16 Urine Glucose (UA) 3+ (Normal) H 12/13/24 10:16 Urine Ketones 3+ (Negative) H 12/13/24 10:16 Urine Blood Negative (Negative) 12/13/24 10:16 Urine Nitrate Negative (Negative) 12/13/24 10:16 Urine Bilirubin Negative (Negative) 12/13/24 10:16 Urine Urobilinogen 1.0 mg/dL (Negative) 12/13/24 10:16 Ur Leukocyte Esterase Negative (Negative) 12/13/24 10:16 Urine RBC 0-2 /hpf (0-2) 12/13/24 10:16 Urine WBC 0-5 /hpf (0-5) 12/13/24 10:16 Ur Squamous Epith Cells 0-5 /hpf (0-5) 12/13/24 10:16 Amorphous Sediment Not Reportable 12/13/24 10:16 Urine Bacteria None seen /hpf (NONE) 12/13/24 10:16 Hyaline Casts 0-4 /lpf H 12/13/24 10:16 Procedures Performed Laparoscopic appendectomy Vitals Last Vital Signs Temp 98.3 F 12/14/24 08:00 Pulse 82 12/14/24 08:00 Resp 14 12/14/24 08:00 BP 128/67 12/14/24 08:00 Pulse Ox 99 12/14/24 08:00 O2 Del Method Room Air 12/14/24 08:00 O2 Flow Rate 6 12/13/24 15:29 Discharge Plan Discharge Patient Disposition: Home Condition: Stable Prescriptions: New hydrocodone-acetaminophen 7.5-325 mg tablet 1 tab PO Q6H PRN (Reason: pain) Qty: 20 0RF docusate sodium [Colace] 100 mg capsule 100 mg PO BID Qty: 14 0RF polyethylene glycol 3350 [Miralax] 17 gram/dose powder 17 g PO DAILY 7 Days Qty: 119 0RF amoxicillin-pot clavulanate 875-125 mg tablet 1 tab PO BID Qty: 14 0RF Continued spironolactone 25 mg tablet 25 mg PO DAILY aspirin 81 mg tablet,delayed release (DR/EC) 81 mg PO DAILY lisinopril 20 mg tablet 20 mg PO DAILY metformin 1,000 mg tablet 1,000 mg PO BID Qty: 60 1RF (DME) Custom accomodative molded orthotics See Rx Instructions .Route .MEDSUPPLY Qty: 1 0RF Rx Instructions: As directed, custom made by [employer]. buspirone 5 mg Tablet 5 mg PO TID cetirizine 10 mg Tablet 10 mg PO DAILY glipizide 5 mg tablet extended release 24hr 5 mg PO DAILY metoprolol succinate 25 mg tablet extended release 24 hr 25 mg PO DAILY methylprednisolone [Medrol (Gomez)] 4 mg Tablets,Dose Pack 0 mg PO PER PKG DIR Rx Instructions: as directed doxycycline hyclate 100 mg Tablet 100 mg PO BID Jardiance 25 mg tablet 25 mg PO DAILY Rx Instructions: Take 1 tablet by mouth once daily Discharge Orders: Discharge Order (Routine); Ordered 12/14/24 Ordered By: Jasvir Dawkins Referrals: Kiara Zurita FNP [Primary Care Provider] - 4-7 days Jasvir Dawkins DO [Physician] - 2 weeks Discharge Diet: Advance as tolerated Discharge Activity: Resume usual activity Activity Restrictions/Additional Instructions: Do not soak incisions underwater for 2 weeks. Shower regularly. Discharge Attestations Time Spent in Discharge Care*: less than 30 min Quality Metrics Clinical Quality Measures [ No reported AMI, CVA or VTE this stay] Coding Level [facility] Care Code [facility] Acute appendicitis K35.80
[2024-12-14 11:15] VITALS: BP 111/62; PULSE 78; RESP 15; TEMP 36.9; O2SAT 97
[2024-12-14 11:16] LABS: Glucose Point of Care 189 mg/dL (70-110)
[2024-12-14 12:27] VITALS: BP 111/62; PULSE 78; RESP 15; TEMP 36.9; O2SAT 97
== END 2024-12-14 11:15 | disposition home or self-care (01) ==
LOC: ER 11:06 → OR 12:28 → MEDSURG 18:45
PROVIDERS: Admitting Provider Internal Medicine; Emergency Provider Family Medicine; PCP Nurse Practitioner Family; Visit Provider Surgery
PROC: 0DTJ4ZZ Resection of Appendix, Percutaneous Endoscopic Approach (ICD-10-PCS; CPT 44970; principal; 2024-12-13 13:00)
DX: K35.80 Unspecified acute appendicitis (principal); I11.0 Hypertensive heart disease with heart failure; I50.9 Heart failure, unspecified; E11.42 Type 2 diabetes mellitus with diabetic polyneuropathy; Z95.2 Presence of prosthetic heart valve; Z79.82 Long term (current) use of aspirin; Z79.84 Long term (current) use of oral hypoglycemic drugs
CPT/HCPCS: 44970; 36416; 74177; 80053; 81001; 82962; 83690; 85025; 88304; 96365; 96375; 99285; G0378; J1100; J2250; J2270; J2405; J2543; J2704; J3010; J7030

== ENCOUNTER → 2024-12-26 10:22 | Outpatient (BNVA) | payer BC, SELFPAY | PROVIDERS: PCP Nurse Practitioner Family; Visit Provider Nurse Practitioner Family | DX: K35.80 Unspecified acute appendicitis (principal) | CPT/HCPCS: 85025 ==